=== PATIENT | female | born 1970 | race Caucasian/White ===

== ENCOUNTER 2016-06-18 18:51 | Emergency (ER) | payer MEDICARE, OTHER ==
--- NOTE | ~2016-06-18 | CR21 ---
[facility] A Service of [facility] RADIOLOGY TEXT RESULTS PATIENT: VINEET MOSQUEDA LOCATION: SED : 68 UNIT #: [id number] AGE: [address]: Nik Hendricks MD SEX: F ORDER DR: [id number] [address] [address] [id number] E MR#: [id number] Acc #: [id number] NAME: VINEET MOSQUEDA : 1970 SEX: F STUDY DATE/TIME: 06/18/2016 18:54 UNIT: SED ROOM: STUDY DESCRIPTION: CR Ankle Min 3 Views Rt Attending Physician: Nik Hendricks M.D. Ordering Physician: Jimbo Valerio M.D. Primary Care Physician: Keya Ross M.D. MEDICAL IMAGING REPORT This report is preliminary unless electronic signature is present. EXAM Right ankle, 3 views COMPARISON 3 views of the right foot on the same date. INDICATIONS 45-year-old female with medial right ankle pain after slipping on steps yesterday. FINDINGS There is mild to moderate enthesophyte at the plantar fascial attachment of the calcaneus with a small Achilles attachment enthesophyte. Bones are anatomically aligned. Chronic ossicle is noted at the medial malleolus, perhaps related to remote fracture or developmental in nature. This is symmetric as compared to contralateral side and it favors developmental process. No evidence of acute fracture. IMPRESSION No acute fracture or dislocation of the right ankle. Chronic ossicle is seen at the medial malleolus, symmetric as compared to contralateral side and most likely developmental. Dictated by... Marv Nj M.D. THIS IS AN ELECTRONICALLY VERIFIED REPORT Marv Nj M.D. at 06/19/2016 11:13 AM Poncho [facility] A Service of [facility] RADIOLOGY TEXT RESULTS PATIENT: VINEET MOSQUEDA LOCATION: SED : 69 UNIT #: [id number] AGE: [address]: Nik Hendricks MD SEX: F ORDER DR: TD: 06/19/2016 06:42 JOB #: [id number] MEDICAL IMAGING REPORT Page 1 of 1
--- NOTE | ~2016-06-18 | CR127 ---
[facility] A Service of [facility] RADIOLOGY TEXT RESULTS PATIENT: VINEET MOSQUEDA LOCATION: SED : [birth year] UNIT #: [id number] AGE: [address]: Nik Hendricks MD SEX: F ORDER DR: [id number] [address] [address] [id number] E MR#: [id number] Acc #: [id number] NAME: VINEET MOSQUEDA : 1970 SEX: F STUDY DATE/TIME: 06/18/2016 18:54 UNIT: SED ROOM: STUDY DESCRIPTION: CR Foot Complete Min 3 View Rt Attending Physician: Nik Hendricks M.D. Ordering Physician: Jimbo Valerio M.D. Primary Care Physician: Keya Ross M.D. MEDICAL IMAGING REPORT This report is preliminary unless electronic signature is present. EXAM Right foot, 3 views COMPARISON 3 views of the left foot on the same date. INDICATIONS A 45-year-old female with right heel pain after slipping on the stairs yesterday. FINDINGS Minimal enthesopathy at the Achilles attachment of the calcaneus with moderate sized enthesophyte at the plantar fascial attachment. Bones are anatomically aligned. There is no evidence of acute fracture. There is an ossicle versus exostosis at the level of the Lisfranc joint. IMPRESSION 1. No acute fracture or dislocation of the right foot. 2. Chronic ossicle versus exostosis at the Lisfranc joint. Dictated by... Marv Nj M.D. THIS IS AN ELECTRONICALLY VERIFIED REPORT Marv Nj M.D. at 06/19/2016 11:55 AM Shan TD: 06/19/2016 06:41 JOB #: [id number] [facility] A Service of [facility] RADIOLOGY TEXT RESULTS PATIENT: VINEET MOSQUEDA LOCATION: SED : 69 UNIT #: [id number] AGE: [address]: Nik Hendricks MD SEX: F ORDER DR: MEDICAL IMAGING REPORT Page 1 of 1
--- NOTE | ~2016-06-18 | CR20 ---
[facility] A Service [facility] RADIOLOGY TEXT RESULTS PATIENT: VINEET MOSQUEDA LOCATION: SED : [birth year] UNIT #: [id number] AGE: [address]: Nik Hendricks MD SEX: F ORDER DR: [id number] [place] [id number] E MR#: [id number] Acc #: [id number] NAME: VINEET MOSQUEDA : 1970 SEX: F STUDY DATE/TIME: 06/18/2016 18:54 UNIT: SED ROOM: STUDY DESCRIPTION: CR Ankle Min 3 Views Lt Attending Physician: Nik Hendricks M.D. Ordering Physician: Jimbo Valerio M.D. Primary Care Physician: Keya Ross M.D. MEDICAL IMAGING REPORT This report is preliminary unless electronic signature is present. EXAM Left ankle, 3 views COMPARISON Three views of the right ankle on the same date. INDICATION A 45-year-old female with medial left ankle pain after slipping on the stairs yesterday. FINDINGS There is chronic ossicle at the medial malleolus, symmetric as compared with the contralateral side and developmental in nature. There is a small to moderate enthesophyte at the plantar fascial attachment the calcaneus with a small enthesophyte at the Achilles attachment. Bones are anatomically aligned at the ankle. No evidence of acute fracture. IMPRESSION 1. No acute fracture or dislocation of the left ankle. 2. Mild degenerative changes at the calcaneus. 3. Chronic ossicle at the medial malleolus, symmetric as compared to the contralateral side and developmental in nature. Dictated by... Marv Nj M.D. [facility] A Service [facility] RADIOLOGY TEXT RESULTS PATIENT: VINEET MOSQUEDA LOCATION: SED : [birth year] UNIT #: [id number] AGE: [address]: Nik Hendricks MD SEX: F ORDER DR: THIS IS AN ELECTRONICALLY VERIFIED REPORT Marv jN M.D. at 06/19/2016 11:04 AM Shan TD: 06/19/2016 06:48 JOB #: [id number] MEDICAL IMAGING REPORT Page 1 of 1
--- NOTE | ~2016-06-18 | CR126 ---
[facility] A Service [facility] RADIOLOGY TEXT RESULTS PATIENT: VINEET MOSQUEDA LOCATION: SED : [birth year] UNIT #: [id number] AGE: [address]: Nik Hendricks MD SEX: F ORDER DR: [id number] [place] [id number] E MR#: [id number] Acc #: [id number] NAME: VINEET MOSQUEDA : 1970 SEX: F STUDY DATE/TIME: 06/18/2016 18:54 UNIT: SED ROOM: STUDY DESCRIPTION: CR Foot Complete Min 3 View Lt Attending Physician: Nik Hendricks M.D. Ordering Physician: Jimbo Valerio M.D. Primary Care Physician: Keya Ross M.D. MEDICAL IMAGING REPORT This report is preliminary unless electronic signature is present. EXAM Left foot, 3 views COMPARISON Three views ere is a left ankle on the same day. INDICATION A 45-year-old female with left heel pain after slipping on stairs yesterday. FINDINGS Mild enthesophyte is noted at the Achilles attachment of the calcaneus with a small to moderate enthesophyte at the plantar fascial attachment. There is question of a tiny os trigonum, normal anatomic variant. Bones are anatomically aligned. No evidence of acute fracture. IMPRESSION 1. No acute fracture or dislocation of the left foot. 2. Mild degenerative changes of the calcaneus. Dictated by... Marv Nj M.D. THIS IS AN ELECTRONICALLY VERIFIED REPORT Marv Nj M.D. at 06/19/2016 11:56 AM JOVANY/jf TD: 06/19/2016 06:43 JOB #: [id number] [facility] A Service [facility] RADIOLOGY TEXT RESULTS PATIENT: VINEET MOSQUEDA LOCATION: SED : [birth year] UNIT #: [id number] AGE: [address]: Nik Hendricks MD SEX: F ORDER DR: MEDICAL IMAGING REPORT Page 1 of 1
[~2016-06-18 18:51] MED LIST: ACID REDUCER75 M1 PO; ASPIRIN EC81 M1 PO; AUGMENTIN875 MG PO; BENADRYL25 M1 PO; BENADRYL25 MG PO; FLEXERIL10 MG; FLEXERIL10 MG PO; FLONASE ALLERG9.9 ML; KEFLEX500 M1 PO; MEDROL4 MG/DOSE- PO; MOTRIN600 MG; OXYCODON-ACETA1 EAC1; PERCOCET 10/3251 TAB PO; PHENERGAN12.5 MG/SU PR; PHENERGAN25 M1 PO; PHENERGAN25 MG PO; PROTONIX20 MG PO; TORADOL10 MG PO; TRAMADOL HCL50 M1 PO; TYLENOL #3; TYLENOL #3 PO; TYLENOL325 M1 PO; ULTRAM; ZANAFLEX; ZYRTEC PO
== END 2016-06-18 19:55 | disposition home or self-care (01) ==
LOC: SED 18:51
DX: S93.402A Sprain of unspecified ligament of left ankle, initial encounter (principal); F31.9 Bipolar disorder, unspecified; Z88.1 Allergy status to other antibiotic agents; Z88.8 Allergy status to other drugs, medicaments and biological substances; Z79.899 Other long term (current) drug therapy; Z88.5 Allergy status to narcotic agent; X58.XXXA Exposure to other specified factors, initial encounter; Y92.009 Unspecified place in unspecified non-institutional (private) residence as the place of occurrence of the external cause
CPT/HCPCS: 29540; 73610; 73630; 96372; 99283; J1170; J2550

== ENCOUNTER 2016-07-15 23:59 | Emergency (ER) | payer MEDICARE, OTHER ==
[2016-07-16 00:32] LABS: URINE SOURCE CLEAN CATCH
[2016-07-16 00:40] LABS: BASOPHIL# 0.1 X10e3 (0-0.3); BASOPHIL% 0.9 % (0-2.5); EOSINOPHIL# 0.2 X10e3 (0-0.7); HEMATOCRIT 39.1 % (35.0-45.0); HEMOGLOBIN 12.9 gm/dL (12.0-16.0); LYMPHOCYTE# 2.4 X10e3 (1.0-3.5); LYMPHOCYTE% 23.6 % (17.0-45.0); MEAN CORPUSCULAR HEMOGLOBIN 29.8 PG (28-34); MEAN CORPUSCULAR HGB CONC 33.1 g/dL (30-36); MEAN PLATELET VOLUME 7.6 FL (6.5-11.5); MONOCYTE# 0.7 X10e3 (0-1.0); MONOCYTE% 6.7 % (3.0-12.0); NEUTROPHIL# 6.8 X10e3 (1.5-7.1); NEUTROPHIL% 66.8 % (40-75); PLATELET COUNT 297 X10e3 (140-420); RED BLOOD COUNT 4.35 X10e (3.90-5.30); RED CELL DISTRIBUTION WIDTH 14.1 % (11.0-15.5); WHITE BLOOD COUNT 10.2 X10e3 (4.0-10.5)
[2016-07-16 00:41] LABS: DIFF IND NO
[2016-07-16 00:42] LABS: URINE APPEARANCE CLEAR; URINE BILIRUBIN NEG (NEG); URINE BLOOD 2+ (NEG); URINE COLOR YELLOW; URINE GLUCOSE NEG (NEG); URINE KETONE NEG (NEG); URINE LEUKOCYTE ESTERASE NEG (NEG); URINE NITRATE NEG (NEG); URINE PROTEIN NEG (NEG); URINE SPECIFIC GRAVITY 1.013 (1.003-1.035); URINE UROBILINOGEN 0.2 MG/DL (NEG)
[2016-07-16 00:45] LABS: URINE BACTERIA AUWI NEG (NEGATIVE); URINE SQUAMOUS EPITHELIAL CELL NONE SEEN /[HPF]; UWBCS1 AUWI 0-2 (0-5)
[2016-07-16 00:47] LABS: CULTURE INDICATED? NO
[2016-07-16 01:07] LABS: ALBUMIN SERUM 4.2 g/dL (3.5-5.0); BILIRUBIN, DIRECT 0.1 mg/dL (0.0-0.2); BILIRUBIN,INDIRECT 0.4 mg/dL (0.0-0.9); BILIRUBIN,TOTAL 0.5 mg/dL (0.2-2.0); CALCIUM SERUM 9.3 mg/dL (8.4-10.2); GLOM FILT RATE Estimated 67.5 mL/min (>60); POTASSIUM 3.8 mmol/L (3.5-5.1); PROTEIN TOTAL SERUM 7.5 g/dL (6.0-8.3)
== END 2016-07-16 03:45 | disposition home or self-care (01) ==
LOC: CED 23:59
PROVIDERS: Emergency Medicine
DX: R10.84 Generalized abdominal pain (principal); R11.0 Nausea; G89.29 Other chronic pain; K31.84 Gastroparesis; F17.200 Nicotine dependence, unspecified, uncomplicated; Z98.890 Other specified postprocedural states; Z79.82 Long term (current) use of aspirin; Z79.899 Other long term (current) drug therapy; Z86.79 Personal history of other diseases of the circulatory system
CPT/HCPCS: 36415; 80048; 80076; 81003; 82150; 83690; 84703; 85025; 96361; 96374; 96375; 99284; J1170; J2550

== ENCOUNTER → 2016-08-09 | Outpatient (CLI) | payer MEDICARE, OTHER ==
[~2016-08-09] MED LIST changes: +GI COCKTAIL PO; +OXAYDO7.5 MG; +PANTOPRAZOLE PO; +PERCOCET 7.5-31 EACH PO; +PROTONIX PO; +SODIUM CHLORIDE; +TRAMADOL HCL50 M2 PO; +TRAMADOL PO; +VICODIN PO; +VITAMIN D PO; +ZANAFLEX PO; +ZANTAC PO; +ZANTAC300 MG PO
== END | disposition home or self-care (01) ==
LOC: CSSDAY 13:12
DX: K86.1 Other chronic pancreatitis (principal)
CPT/HCPCS: 96360; 96361

== ENCOUNTER 2016-08-16 10:58 | Emergency (ER) | payer MEDICARE, OTHER ==
[~2016-08-16 10:58] MED LIST changes: -GI COCKTAIL PO; -OXAYDO7.5 MG; -PANTOPRAZOLE PO; -PERCOCET 7.5-31 EACH PO; -PROTONIX PO; -SODIUM CHLORIDE; -TRAMADOL HCL50 M2 PO; -TRAMADOL PO; -VICODIN PO; -VITAMIN D PO; -ZANAFLEX PO; -ZANTAC PO; -ZANTAC300 MG PO
[2016-08-16 12:01] LABS: BASOPHIL# 0.1 X10e3 (0-0.3); BASOPHIL% 0.6 % (0-2.5); EOSINOPHIL# 0.1 X10e3 (0-0.7); EOSINOPHIL% 1.5 % (0.0-7.0); HEMATOCRIT 39.6 % (35.0-45.0); HEMOGLOBIN 13.2 gm/dL (12.0-16.0); LYMPHOCYTE# 1.1 X10e3 (1.0-3.5); LYMPHOCYTE% 12.3 % (17.0-45.0); MEAN CELL VOLUME 89.6 FL (83-96); MEAN CORPUSCULAR HEMOGLOBIN 29.8 PG (28-34); MEAN CORPUSCULAR HGB CONC 33.3 g/dL (30-36); MONOCYTE# 0.5 X10e3 (0-1.0); NEUTROPHIL# 7.1 X10e3 (1.5-7.1); NEUTROPHIL% 79.6 % (40-75); PLATELET COUNT 284 X10e3 (140-420); RED BLOOD COUNT 4.41 X10e (3.90-5.30); RED CELL DISTRIBUTION WIDTH 13.6 % (11.0-15.5); WHITE BLOOD COUNT 8.9 X10e3 (4.0-10.5)
[2016-08-16 12:02] LABS: DIFF IND NO
[2016-08-16 12:14] LABS: URINE SOURCE CLEAN CATCH
[2016-08-16 12:24] LABS: URINE APPEARANCE CLEAR; URINE BILIRUBIN NEG (NEG); URINE BLOOD 3+ (NEG); URINE COLOR YELLOW; URINE GLUCOSE NEG (NEG); URINE KETONE NEG (NEG); URINE LEUKOCYTE ESTERASE NEG (NEG); URINE NITRATE NEG (NEG); URINE PH 5.5 (5-8); URINE PROTEIN NEG (NEG); URINE SPECIFIC GRAVITY 1.008 (1.003-1.035); URINE UROBILINOGEN 0.2 MG/DL (NEG)
[2016-08-16 12:27] LABS: URINE BACTERIA AUWI NEG (NEGATIVE); URINE SQUAMOUS EPITHELIAL CELL NONE SEEN /[HPF]; UWBCS1 AUWI 0-2 (0-5)
[2016-08-16 12:29] LABS: BUN/CREATININE RATIO 8.88; CALCIUM SERUM 9.2 mg/dL (8.4-10.2); CREATININE SERUM 0.9 mg/dL (0.6-1.4); GLOM FILT RATE Estimated 76.7 mL/min (>60); POTASSIUM 3.7 mmol/L (3.5-5.1)
[2016-08-16 12:31] LABS: CULTURE INDICATED? NO
[2016-08-16 12:43] LABS: AMPHETAMINE NEG (NEG); BARBITURATES NEG (NEG); BENZODIAZEPINES NEG (NEG); COCAINE NEG (NEG); MARIJUANA NEG (NEG); OPIATES NEG (NEG); TRICYCLIC ANTIDEPRESSANTS NEG (NEG); U METHADONE NEG (NEG)
== END 2016-08-16 13:30 | disposition home or self-care (01) ==
LOC: CED 10:58
PROVIDERS: Emergency Medicine
DX: M54.5 Low back pain (principal); G89.29 Other chronic pain; Z98.890 Other specified postprocedural states
CPT/HCPCS: 36415; 80048; 80307; 81003; 85025; 96361; 96365; 96374; 99284; J2270

== ENCOUNTER 2016-08-23 06:02 | Emergency (ER) | payer MEDICARE, OTHER ==
[2016-08-23 07:33] LABS: BASOPHIL% 0.4 % (0-2.5); EOSINOPHIL# 0.2 X10e3 (0-0.7); EOSINOPHIL% 1.6 % (0.0-7.0); HEMATOCRIT 40.1 % (35.0-45.0); HEMOGLOBIN 13.6 gm/dL (12.0-16.0); LYMPHOCYTE# 0.7 X10e3 (1.0-3.5); LYMPHOCYTE% 7.4 % (17.0-45.0); MEAN CELL VOLUME 88.5 FL (83-96); MEAN CORPUSCULAR HGB CONC 33.9 g/dL (30-36); MEAN PLATELET VOLUME 7.6 FL (6.5-11.5); MONOCYTE# 0.8 X10e3 (0-1.0); MONOCYTE% 8.7 % (3.0-12.0); NEUTROPHIL# 7.9 X10e3 (1.5-7.1); NEUTROPHIL% 81.9 % (40-75); PLATELET COUNT 276 X10e3 (140-420); RED BLOOD COUNT 4.54 X10e (3.90-5.30); RED CELL DISTRIBUTION WIDTH 13.1 % (11.0-15.5); WHITE BLOOD COUNT 9.7 X10e3 (4.0-10.5)
[2016-08-23 07:40] LABS: DIFF IND NO
[2016-08-23 08:07] LABS: ALBUMIN SERUM 4.2 g/dL (3.5-5.0); BILIRUBIN, DIRECT 0.1 mg/dL (0.0-0.2); BILIRUBIN,INDIRECT 0.7 mg/dL (0.0-0.9); BILIRUBIN,TOTAL 0.8 mg/dL (0.2-2.0); BUN/CREATININE RATIO 8.75; CALCIUM SERUM 9.6 mg/dL (8.4-10.2); CREATININE SERUM 0.8 mg/dL (0.6-1.4); GLOM FILT RATE Estimated 88.5 mL/min (>60); POTASSIUM 3.2 mmol/L (3.5-5.1); PROTEIN TOTAL SERUM 8.8 g/dL (6.0-8.3)
[2016-08-23] MEDS ORDERED: VICODIN PO (09:42)
[2016-08-23] MEDS ORDERED: PHENERGAN25 MG PO (09:42)
[2016-08-23 10:37] LABS: URINE SOURCE CLEAN CATCH
[2016-08-23 10:49] LABS: URINE APPEARANCE CLEAR; URINE BILIRUBIN NEG (NEG); URINE BLOOD 2+ (NEG); URINE COLOR YELLOW; URINE GLUCOSE NEG (NEG); URINE KETONE NEG (NEG); URINE LEUKOCYTE ESTERASE 3+ (NEG); URINE NITRATE NEG (NEG); URINE PH 6.5 (5-8); URINE PROTEIN NEG (NEG); URINE SPECIFIC GRAVITY 1.007 (1.003-1.035)
[2016-08-23 10:52] LABS: CULTURE INDICATED? YES; URBCS1 AUWI 25-50 /[HPF] (0-2); URINE BACTERIA AUWI NEG (NEGATIVE); URINE SQUAMOUS EPITHELIAL CELL NONE SEEN /[HPF]
== END 2016-08-23 15:43 ==
LOC: CED 06:02
PROVIDERS: Emergency Medicine
DX: K85.90 Acute pancreatitis without necrosis or infection, unspecified (principal); Z98.890 Other specified postprocedural states; Z79.891 Long term (current) use of opiate analgesic; Z79.899 Other long term (current) drug therapy
CPT/HCPCS: 36415; 80048; 80076; 81003; 82150; 83690; 85025; 87040; 87086; 96361; 96374; 96375; 99285; J2270; J2550

== ENCOUNTER 2016-10-02 18:05 | Emergency (ER) | payer MEDICARE, OTHER ==
--- NOTE | ~2016-10-02 | CR127 ---
[facility] A Service of [facility] RADIOLOGY TEXT RESULTS PATIENT: VINEET MOSQUEDA LOCATION: SED : [birth year] UNIT #: [id number] AGE: [address]: DELFINO BELLE SEX: F ORDER DR: [id number] [place] [id number] E MR#: [id number] Acc #: [id number] NAME: VINEET MOSQUEDA : 1970 SEX: F STUDY DATE/TIME: 10/02/2016 18:34 UNIT: SED ROOM: STUDY DESCRIPTION: CR Foot Complete Min 3 View Rt Attending Physician: Delfino Belle Ordering Physician: Chandni Stokes Pa-C Primary Care Physician: Yoni Marks M.D. MEDICAL IMAGING REPORT This report is preliminary unless electronic signature is present. EXAM Right foot series dated 10/02/2016. COMPARISON Left foot series dated 06/18/2016. HISTORY Trauma last night with the pain in the right foot. FINDINGS Three views of the right foot were obtained. The tarsal, metatarsal, and phalangeal elements are all anatomically normal in position and alignment. There are no articular defects. No fractures or radiopaque foreign bodies in the soft tissues are apparent. Small calcaneal spur is present. IMPRESSION Normal foot. Dictated by... Alta Shelton M.D. THIS IS AN ELECTRONICALLY VERIFIED REPORT Alta Shelton M.D. at 10/03/2016 1:27 PM CPR/ea [facility]. [facility] A Service of [facility] RADIOLOGY TEXT RESULTS PATIENT: VINEET MOSQUEDA LOCATION: SED : [birth year] UNIT #: [id number] AGE: [address]: DELFINO BELLE SEX: F ORDER DR: TD: 10/02/2016 22:11 JOB #: [id number] MEDICAL IMAGING REPORT Page 1 of 1
[~2016-10-02 18:05] MED LIST changes: +VICODIN PO
[2016-10-02] MEDS ORDERED: TRAMADOL PO (18:08)
[2016-10-02] MEDS ORDERED: SODIUM CHLORIDE (18:09)
[2016-10-02] MEDS ORDERED: PANTOPRAZOLE PO (18:09)
[2016-10-02] MEDS ORDERED: VITAMIN D PO (18:10)
[2016-10-02] MEDS ORDERED: ZANTAC PO (18:10)
[2016-10-02] MEDS ORDERED: ZANAFLEX PO (18:11)
== END 2016-10-02 19:48 | disposition home or self-care (01) ==
LOC: SED 18:05
DX: S90.31XA Contusion of right foot, initial encounter (principal); K21.9 Gastro-esophageal reflux disease without esophagitis; F17.200 Nicotine dependence, unspecified, uncomplicated; Z86.718 Personal history of other venous thrombosis and embolism; Z79.899 Other long term (current) drug therapy; Z88.2 Allergy status to sulfonamides; Z88.8 Allergy status to other drugs, medicaments and biological substances; Z88.1 Allergy status to other antibiotic agents; Z88.5 Allergy status to narcotic agent; W22.09XA Striking against other stationary object, initial encounter; Y92.009 Unspecified place in unspecified non-institutional (private) residence as the place of occurrence of the external cause
CPT/HCPCS: 29405; 73630; 99283

== ENCOUNTER 2016-10-15 00:41 | Emergency (ER) | payer MEDICARE, OTHER ==
[~2016-10-15 00:41] MED LIST changes: +PANTOPRAZOLE PO; +SODIUM CHLORIDE; +TRAMADOL PO; +VITAMIN D PO; +ZANAFLEX PO; +ZANTAC PO
[2016-10-15 04:06] LABS: BASOPHIL# 0.1 X10e3 (0-0.3); DIFF IND NO; EOSINOPHIL# 0.2 X10e3 (0-0.7); EOSINOPHIL% 2.7 % (0.0-7.0); HEMATOCRIT 38.5 % (35.0-45.0); HEMOGLOBIN 13.1 gm/dL (12.0-16.0); LYMPHOCYTE# 2.2 X10e3 (1.0-3.5); LYMPHOCYTE% 28.6 % (17.0-45.0); MEAN CELL VOLUME 87.9 FL (83-96); MEAN CORPUSCULAR HEMOGLOBIN 29.9 PG (28-34); MEAN CORPUSCULAR HGB CONC 34.1 g/dL (30-36); MEAN PLATELET VOLUME 7.3 FL (6.5-11.5); MONOCYTE# 0.5 X10e3 (0-1.0); MONOCYTE% 6.7 % (3.0-12.0); NEUTROPHIL# 4.8 X10e3 (1.5-7.1); PLATELET COUNT 302 X10e3 (140-420); RED BLOOD COUNT 4.38 X10e (3.90-5.30); RED CELL DISTRIBUTION WIDTH 14.3 % (11.0-15.5); WHITE BLOOD COUNT 7.8 X10e3 (4.0-10.5)
[2016-10-15 04:29] LABS: ALBUMIN SERUM 4.4 g/dL (3.5-5.0); ALKALINE PHOSPHATASE 111 U/L (32-92); ALT (SGPT) 14 U/L (10-40); AMYLASE 74 U/L (0-46); AST (SGOT) 14 U/L (10-42); BILIRUBIN,TOTAL 0.5 mg/dL (0.2-2.0); BLOOD UREA NITROGEN 13 mg/dL (9-23); BUN/CREATININE RATIO 16.25; CALCIUM SERUM 9.3 mg/dL (8.4-10.2); CARBON DIOXIDE 26 mmol/L (22-31); CHLORIDE 108 mmol/L (100-111); CREATININE SERUM 0.8 mg/dL (0.6-1.4); GLOM FILT RATE Estimated 87.9 mL/min (>60); GLUCOSE FASTING 95 mg/dL (70-110); LIPASE 73 U/L (22-51); POTASSIUM 3.9 mmol/L (3.5-5.1); PROTEIN TOTAL SERUM 8.1 g/dL (6.0-8.3); SODIUM 139 mmol/L (135-145)
[2016-10-15 04:33] LABS: BILIRUBIN, DIRECT <0.1 mg/dL (0.0-0.2); BILIRUBIN,INDIRECT 0.4 mg/dL (0.0-0.9)
== END 2016-10-15 05:01 | disposition home or self-care (01) ==
LOC: CED 00:41
PROVIDERS: Emergency Medicine
DX: R10.11 Right upper quadrant pain (principal); G43.909 Migraine, unspecified, not intractable, without status migrainosus; F17.200 Nicotine dependence, unspecified, uncomplicated; Z90.49 Acquired absence of other specified parts of digestive tract; Z90.710 Acquired absence of both cervix and uterus; Z88.8 Allergy status to other drugs, medicaments and biological substances; Z88.1 Allergy status to other antibiotic agents; Z79.899 Other long term (current) drug therapy
CPT/HCPCS: 36415; 80048; 80076; 82150; 83690; 85025; 96361; 96374; 96375; 99284; C9113; J2270; J2550

== ENCOUNTER 2016-10-16 13:56 | Emergency (ER) | payer MEDICARE, OTHER ==
[~2016-10-16] VITALS: Ht 167.6 cm; Wt 72.6 kg
[2016-10-16 14:52] LABS: URINE SOURCE CLEAN CATCH
[2016-10-16 15:02] LABS: URINE APPEARANCE CLEAR; URINE BILIRUBIN NEG (NEG); URINE BLOOD 1+ (NEG); URINE COLOR YELLOW; URINE GLUCOSE NEG (NEG); URINE KETONE NEG (NEG); URINE LEUKOCYTE ESTERASE TRACE (NEG); URINE NITRATE NEG (NEG); URINE PH 5.5 (5-8); URINE PROTEIN NEG (NEG); URINE SPECIFIC GRAVITY 1.007 (1.003-1.035); URINE UROBILINOGEN 0.2 MG/DL (NEG)
[2016-10-16 15:06] LABS: URINE BACTERIA AUWI NEG (NEGATIVE); URINE SQUAMOUS EPITHELIAL CELL NONE SEEN /[HPF]; UWBCS1 AUWI 0-2 (0-5)
[2016-10-16 15:12] LABS: CULTURE INDICATED? NO
[2016-10-16 15:19] LABS: AMPHETAMINE NEG (NEG); BARBITURATES NEG (NEG); BENZODIAZEPINES NEG (NEG); COCAINE NEG (NEG); MARIJUANA NEG (NEG); OPIATES POS (NEG); TRICYCLIC ANTIDEPRESSANTS NEG (NEG); U METHADONE NEG (NEG)
[2016-10-16 15:32] LABS: BASOPHIL# 0.1 X10e3 (0-0.3); EOSINOPHIL# 0.1 X10e3 (0-0.7); EOSINOPHIL% 1.6 % (0.0-7.0); HEMATOCRIT 36.9 % (35.0-45.0); HEMOGLOBIN 12.3 gm/dL (12.0-16.0); LYMPHOCYTE# 1.4 X10e3 (1.0-3.5); LYMPHOCYTE% 18.6 % (17.0-45.0); MEAN CELL VOLUME 88.1 FL (83-96); MEAN CORPUSCULAR HEMOGLOBIN 29.4 PG (28-34); MEAN CORPUSCULAR HGB CONC 33.4 g/dL (30-36); MEAN PLATELET VOLUME 7.3 FL (6.5-11.5); MONOCYTE# 0.4 X10e3 (0-1.0); MONOCYTE% 5.7 % (3.0-12.0); NEUTROPHIL# 5.3 X10e3 (1.5-7.1); NEUTROPHIL% 73.1 % (40-75); PLATELET COUNT 291 X10e3 (140-420); RED BLOOD COUNT 4.18 X10e (3.90-5.30); RED CELL DISTRIBUTION WIDTH 14.1 % (11.0-15.5); WHITE BLOOD COUNT 7.3 X10e3 (4.0-10.5)
[2016-10-16 15:37] LABS: DIFF IND NO
[2016-10-16 16:21] LABS: ALBUMIN SERUM 4.3 g/dL (3.5-5.0); ALKALINE PHOSPHATASE 104 U/L (32-92); ALT (SGPT) 14 U/L (10-40); AMYLASE 51 U/L (0-46); AST (SGOT) 16 U/L (10-42); BILIRUBIN,TOTAL 0.2 mg/dL (0.2-2.0); BLOOD UREA NITROGEN 7 mg/dL (9-23); BUN/CREATININE RATIO 8.75; CALCIUM SERUM 9.5 mg/dL (8.4-10.2); CARBON DIOXIDE 24 mmol/L (22-31); CHLORIDE 109 mmol/L (100-111); CREATININE SERUM 0.8 mg/dL (0.6-1.4); GLOM FILT RATE Estimated 87.9 mL/min (>60); GLUCOSE FASTING 95 mg/dL (70-110); LIPASE 47 U/L (22-51); PROTEIN TOTAL SERUM 7.8 g/dL (6.0-8.3); SODIUM 142 mmol/L (135-145)
[2016-10-16 16:23] LABS: BILIRUBIN, DIRECT <0.1 mg/dL (0.0-0.2); BILIRUBIN,INDIRECT 0.1 mg/dL (0.0-0.9)
== END 2016-10-16 18:00 | disposition home or self-care (01) ==
LOC: CED 13:56
PROVIDERS: Emergency Medicine
DX: R10.13 Epigastric pain (principal); R11.2 Nausea with vomiting, unspecified; R19.7 Diarrhea, unspecified; R51 Headache; F17.200 Nicotine dependence, unspecified, uncomplicated; Z90.49 Acquired absence of other specified parts of digestive tract; Z90.710 Acquired absence of both cervix and uterus; Z79.899 Other long term (current) drug therapy; Z88.2 Allergy status to sulfonamides; Z88.1 Allergy status to other antibiotic agents; Z88.8 Allergy status to other drugs, medicaments and biological substances
CPT/HCPCS: 36415; 80048; 80076; 80307; 81003; 82150; 83690; 85025; 96361; 96374; 96375; 99284; J1885; J2270; J2550

== ENCOUNTER 2016-10-20 19:34 | Emergency (ER) | payer MEDICARE, OTHER ==
[~2016-10-20] VITALS: Ht 167.6 cm; Wt 72.6 kg
--- NOTE | ~2016-10-20 | CR132 ---
[facility] [[email or web address] A Service of [facility] RADIOLOGY TEXT RESULTS PATIENT: VINEET MOSQUEDA LOCATION: SED : [birth year] UNIT #: [id number] AGE: [address]: CHLOE MENDOZA SEX: F ORDER DR: [id number] [place] [id number] E MR#: [id number] Acc #: [id number] NAME: VINEET MOSQUEDA : 1970 SEX: F STUDY DATE/TIME: 10/20/2016 20:03 UNIT: SED ROOM: STUDY DESCRIPTION: CR Forearm 2 View Lt Attending Physician: Chloe Mendoza A.P.R.N. Ordering Physician: Chloe Mendoza A.P.R.N. Primary Care Physician: Yoni Marks M.D. MEDICAL IMAGING REPORT This report is preliminary unless electronic signature is present. EXAM Left forearm 2 views HISTORY Arm pain after fall onto table today. FINDINGS AP and lateral views of the forearm show no evidence of fracture or destructive bone lesion. No periosteal elevation is seen. No radiodense foreign bodies are noted. Adjacent soft tissue structures are normal. IMPRESSION Normal forearm. Dictated by... Silverio Lopez M.D. THIS IS AN ELECTRONICALLY VERIFIED REPORT Silverio Lopez M.D. at 10/21/2016 11:18 PM DFMarie/vanessa TD: 10/21/2016 08:20 JOB #: [id number] MEDICAL IMAGING REPORT Page 1 of 1
[2016-10-20] MEDS ORDERED: OXAYDO7.5 MG (19:47)
== END 2016-10-20 20:45 | disposition home or self-care (01) ==
LOC: SED 19:34
DX: S50.12XA Contusion of left forearm, initial encounter (principal); F17.200 Nicotine dependence, unspecified, uncomplicated; Z88.8 Allergy status to other drugs, medicaments and biological substances; Z79.899 Other long term (current) drug therapy; W01.0XXA Fall on same level from slipping, tripping and stumbling without subsequent striking against object, initial encounter; Y92.009 Unspecified place in unspecified non-institutional (private) residence as the place of occurrence of the external cause
CPT/HCPCS: 73090; 99283

== ENCOUNTER → 2016-10-24 | Outpatient (CLI) | payer MEDICARE, OTHER ==
[~2016-10-24] MED LIST changes: +GI COCKTAIL PO; +OXAYDO7.5 MG; +PERCOCET 7.5-31 EACH PO; +PROTONIX PO; +TRAMADOL HCL50 M2 PO; +ZANTAC300 MG PO
== END | disposition home or self-care (01) ==
LOC: CSSDAY 14:49
DX: K86.1 Other chronic pancreatitis (principal); R19.7 Diarrhea, unspecified; R11.0 Nausea; Z79.899 Other long term (current) drug therapy
CPT/HCPCS: 96360; 96361; 96374; J2550

== ENCOUNTER 2016-11-02 17:34 | Emergency (ER) | payer MEDICARE, OTHER ==
[~2016-11-02] VITALS: Ht 167.6 cm; Wt 70.3 kg
[~2016-11-02 17:34] MED LIST changes: -GI COCKTAIL PO; -PERCOCET 7.5-31 EACH PO; -PROTONIX PO; -TRAMADOL HCL50 M2 PO; -ZANTAC300 MG PO
[2016-11-02 18:24] LABS: URINE SOURCE CLEAN CATCH
[2016-11-02 18:33] LABS: URINE APPEARANCE CLEAR; URINE BILIRUBIN NEG (NEG); URINE BLOOD 2+ (NEG); URINE COLOR YELLOW; URINE GLUCOSE NEG (NEG); URINE KETONE NEG (NEG); URINE LEUKOCYTE ESTERASE NEG (NEG); URINE NITRATE NEG (NEG); URINE PH 5.5 (5-8); URINE PROTEIN NEG (NEG); URINE SPECIFIC GRAVITY 1.008 (1.003-1.035); URINE UROBILINOGEN 0.2 MG/DL (NEG)
[2016-11-02 18:36] LABS: URINE BACTERIA AUWI NEG (NEGATIVE); URINE SQUAMOUS EPITHELIAL CELL NONE SEEN /[HPF]; UWBCS1 AUWI 0-2 (0-5)
[2016-11-02 18:37] LABS: CULTURE INDICATED? NO
[2016-11-02 19:01] LABS: BASOPHIL# 0.1 X10e3 (0-0.3); BASOPHIL% 1.2 % (0-2.5); EOSINOPHIL# 0.2 X10e3 (0-0.7); EOSINOPHIL% 1.9 % (0.0-7.0); HEMOGLOBIN 12.9 gm/dL (12.0-16.0); LYMPHOCYTE# 1.9 X10e3 (1.0-3.5); LYMPHOCYTE% 21.4 % (17.0-45.0); MEAN CORPUSCULAR HEMOGLOBIN 29.9 PG (28-34); MEAN PLATELET VOLUME 7.4 FL (6.5-11.5); MONOCYTE# 0.6 X10e3 (0-1.0); MONOCYTE% 6.6 % (3.0-12.0); NEUTROPHIL# 6.2 X10e3 (1.5-7.1); NEUTROPHIL% 68.9 % (40-75); PLATELET COUNT 328 X10e3 (140-420); RED BLOOD COUNT 4.32 X10e (3.90-5.30); RED CELL DISTRIBUTION WIDTH 14.5 % (11.0-15.5); WHITE BLOOD COUNT 8.9 X10e3 (4.0-10.5)
[2016-11-02 19:06] LABS: DIFF IND NO
[2016-11-02 19:31] LABS: ALBUMIN SERUM 4.3 g/dL (3.5-5.0); BILIRUBIN, DIRECT 0.2 mg/dL (0.0-0.2); BILIRUBIN,INDIRECT 0.3 mg/dL (0.0-0.9); BILIRUBIN,TOTAL 0.5 mg/dL (0.2-2.0); BUN/CREATININE RATIO 13.75; CALCIUM SERUM 9.3 mg/dL (8.4-10.2); CREATININE SERUM 0.8 mg/dL (0.6-1.4); GLOM FILT RATE Estimated 87.9 mL/min (>60); POTASSIUM 4.1 mmol/L (3.5-5.1)
== END 2016-11-02 23:52 | disposition home or self-care (01) ==
LOC: CED 17:34
PROVIDERS: Emergency Medicine
DX: K86.1 Other chronic pancreatitis (principal); E86.0 Dehydration; R19.7 Diarrhea, unspecified; G43.909 Migraine, unspecified, not intractable, without status migrainosus; F17.200 Nicotine dependence, unspecified, uncomplicated; Z90.49 Acquired absence of other specified parts of digestive tract; Z88.1 Allergy status to other antibiotic agents; Z88.8 Allergy status to other drugs, medicaments and biological substances
CPT/HCPCS: 36415; 80048; 80076; 81003; 82150; 83690; 85025; 96361; 96374; 96375; 99284; J1885; J2550

== ENCOUNTER 2016-11-16 14:58 | Inpatient (IN) | payer MEDICARE, OTHER ==
[~2016-11-16] VITALS: Ht 167.6 cm; Wt 68.5 kg
--- NOTE | ~2016-11-16 | A ---
[facility] DATE: 11/18/16 Patient: VINEET MOSQUEDA Physician: JUAN Address: [address] [place] [address] ROAD Room/Bed: [address] [place] [address], Zip: [place] [address] Admit Date: 11/17/16 Date of : [birth year] Height: 5 6 Weight: 151 68.5 NUTRITIONAL ASSESSMENT: REASON: 4 nutrition screen points (unplanned weight loss), consult Admitting dx: Pt is a 46 y/o female admitted with pancreatitis PMH: SVT, fibromyalgia, DVT, glycoprotein II disorder, antiphospholipid syndrome, 1/2 PPD smoker, PE, chronic pancreatitis Anthropometrics: Ht:66" Wt:151# BMI:25.1 UBW:170# %UBW:89% 11% weight loss in ~5 weeks (severe) Labs: Alb:3.2 ALT:9 Amyl:260 Lip:200 Meds: Protonix, Pepcid, Phenergan I/O & Bowel function: BM 11/16 Skin Integrity: ABD-scar Assessment: Chart reviewed, events noted. Pt was seen for unplanned weight loss. Furniture Polisher was able to speak to the pt at bedside. Pt reports that she has lost 20# in ~5 weeks (11% loss). Pt states that her appetite is good, but recent food allergies/issues have caused her to limit her intake and that she is scared to eat. Per pt, she has undergone food allergy testing (positive for pork and watermelon) and abides to a gluten free diet that is high in protein and low in fat. These food issues began in February 2016 and continue to persist and worsen. Pt reports she has recently had issues with strawberries, tomatoes, and MSG. Per pt, possible autoimmune disorders are currently being questioned. This RD encouraged the pt to eat smaller meals slowly and frequently throughout the day. Per rn internal medicine, pt seems to have a good knowledge of food and diet. RD to order pt a supplement to prevent further unintended weight loss. RD to follow-up per protocol. Dx: Decreased oral intake r/t new onset of food allergies/intolerances AEB 20# (11%) weight loss in ~5 weeks. Intervention: See RD recs below Monitoring, Evaluation and Goals: 1. Prevent further unintended weight loss. 2. Labs WNL. 3. Advancement and tolerance of PO diet. [facility] DATE: 11/18/16 Patient: VINEET MOSQUEDA Physician: JUAN Address: [address] [place] [address] ROAD Room/Bed: [address] [place] [address], Zip: [place] [address] Admit Date: 11/17/16 Date of : [birth year] Height: 5 6 Weight: 151 68.5 Monitor: criteria to determine if above goals met Recommendations: 1. Once medically feasible and diet advances to clear liquid, order Ensure Clear Apple BID to supplement poor PO intake and prevent further weight loss. If diet advances beyond clears, order Chocolate Ensure shakes BID. 2. Advance diet per DEADENER as tolerated with a low fat and lactose restriction. 3. Appreciate family and staff to encourage adequate po intake. RD will follow Pt is moderately compromised Respectfully, Florecita Gonzalez, Loader Unloader Bradley Davila, MS, RD, LD Food and Nutritional Services [facility] cc: client file
--- NOTE | ~2016-11-16 | DS ---
Unit #: [id number] #: [id number] Patient: VINEET MOSQUEDA [id number] [address] [address] [id number] I MR#: [id number] NAME: VINEET MOSQUEDA ROOM: 561 Age: 46 Sex: F Admission Date: 11/17/2016 : 1970 Discharge Date: 11/19/2016 Attending Physician: Nola Lopez M.D. Primary Care Physician: Olivia Squires A.P.R.N. DISCHARGE SUMMARY PRIMARY CARE PROVIDER Olivia Squires A.P.R.N. PRIMARY UG DESIGNER Sharon Dickson M.D. PRINCIPAL DIAGNOSES 1. Acute post endoscopic retrograde cholangiopancreatography pancreatitis, now resolved. 2. 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 3. History of supraventricular tachycardia, not observed during hospitalization. 4. Antiphospholipid antibody with prior history of blood clots, currently off anticoagulation. 5. Fibromyalgia. 6. Anxiety and depression. CONSULTANTS None. PROCEDURES None. CLINICAL HISTORY AND HOSPITAL COURSE Ms. Mosqueda is a 46-year-old female with a history of chronic pancreatitis, who underwent ERCP by Dr. Sharon Dickson on 11/15/2016. She presented to the emergency department on the with increasing abdominal pain and was found to have an elevated lipase of 389. She was subsequently admitted for acute pancreatitis. The patient was placed on IV fluids and made n.p.o., placed on antiemetics and pain medications. The following day, lipase had improved down to 200 and the patient was started on clears. She continued to have significant amount of pain, though was not having any nausea, vomiting, or diarrhea. By the morning of the , lipase had normalized at 32 and the patient was still having significant amount of pain, but was able to tolerate a diet without any nausea or vomiting. The patient informs me that her pancreatitis is better controlled on both of pain medication and continuous IV fluids at home. It is my understanding after speaking with Dr. Dickson that the patient has been on continuous IV fluids in the past, particularly both pre and post ERCP. I discussed the patient's case with Dr. Sharon Dickson and she will be discharged home on IV fluid as outlined Unit #: [id number] #: [id number] Patient: VINEET MOSQUEDA below. She will follow up with Dr. Dickson later this week. DISCHARGE CONDITION Stable. DISCHARGE STATUS Discharged to home with home health. DISCHARGE MEDICATIONS D5 half-normal saline at 100 mL an hour, Phenergan 25 mg p.o. q.4 hours p.r.n. for nausea and vomiting, Zantac 300 mg daily, Toradol 10 mg p.o. t.i.d. p.r.n. for headache, Percocet 7.5/325 mg one tablet p.o. q.4 hours p.r.n. for pain number given 15, tramadol 50 mg daily, Protonix 40 mg daily, GI cocktail 10 mL p.o. q.4 hours p.r.n. for indigestion. DISCHARGE INSTRUCTIONS The patient instructed to continue a regular diet as she can tolerate. She can increase her activity as tolerated. Again, we will maintain continuous IV fluids at home. FOLLOWUP The patient will follow up with Dr. Sharon Dickson later this week. Time spent on discharge 40 minutes. Dictated by... Nola Lopez M.D. GLENNY/soledad TD: 11/21/2016 15:16 JOB #: [id number] DISCHARGE SUMMARY Page 1 of 1 X Nola Lopez MD X DISCHARGE SUMMARY
--- NOTE | ~2016-11-16 | HP ---
Unit #: [id number] #: [id number] Patient: VINEET MOSQUEDA [id number] [address] [address] [id number] I MR#: [id number] NAME: VINEET MOSQUEDA ROOM: 561 Age: 46 Sex: F Admission Date: 11/16/2016 : 1970 Attending Physician: Nicholas Harris M.D. Primary Care Physician: Olivia Squires HISTORY AND PHYSICAL CHIEF COMPLAINT Upper abdominal pain, nausea. DISCUSSION This is a 46-year-old female, who has a past medical history of chronic autoimmune recurrent pancreatitis, multiple ERCPs in the past, she had an ERCP also done yesterday by Dr. Sharon Dickson. She has history of SVT ablation, migraine, fibromyalgia, and antiphospholipid syndrome, glycoprotein II disorder, remote history of PE and left DVT in the past in 2008, on anticoagulation and she presented to the emergency room with chief complaint of having upper abdominal pain, she described radiate to back, she was found to be elevated lipase 389, potassium 3.5, and she had been admitted for acute pancreatitis, she denies fever, chills, and no other complaint. PAST MEDICAL HISTORY 1. History of SVT with ablation in the past. 2. Chronic autoimmune recurrent pancreatitis. 3. Migraine. 4. Fibromyalgia. 5. Antiphospholipid syndrome. 6. Glycoprotein II disorder. 7. History of pulmonary embolism, DVT in 2008, she is not on anticoagulation anymore. PAST SURGICAL HISTORY 1. Cholecystectomy. 2. Rectocele repair. 3. Multiple ERCPs. 4. Bladder repair. 5. C-spine fusion. 6. Hysterectomy. 7. Multiple abdominal surgeries for lysis of adhesions. 8. Left shoulder orthostatic surgery. ALLERGIES She has multiple allergies, NSAIDs, sulfonamides, nifedipine, Compazine, Tessalon Perles, methocarbamol, Robaxin, Klonopin, clonazepam, lithium, Mucinex, baclofen, methylprednisolone, Elavil, clindamycin, Macrobid, Cipro, Zithromax, Imitrex, Lovenox, gabapentin, Effexor, Stadol, ondansetron, gluten. FAMILY HISTORY Negative for pancreatitis. Unit #: [id number] #: [id number] Patient: VINEET MOSQUEDA HOME MEDICATIONS Are the followin. Percocet 2. Phenergan 3. Tramadol 4. Ranitidine 5. Pantoprazole 6. Zanaflex 7. GI cocktail SOCIAL HISTORY The patient smokes one half pack per day, does not drink alcohol, no other illicit drug use. REVIEW OF SYSTEMS Negative except as mentioned in the history of present illness. PHYSICAL EXAMINATION GENERAL: Middle-aged female lying in the bed comfortably, currently not in any distress. She is alert, awake, and oriented x3, comfortable, not in any distress. VITAL SIGNS: Current vitals are the following, temperature 98.9, heart rate 102, respiratory rate 16, and blood pressure 114/74. HEENT EXAMINATION: Pupils equal reactive to light and accommodation. Head: Normocephalic and atraumatic. NECK: Supple. No jugular venous distention. HEART: S1 and S2, regular rate and rhythm. LUNGS: Clear to auscultation bilaterally. No rhonchi. No wheezing. ABDOMEN: Soft, nontender, and nondistended. Bowel sounds are positive. EXTREMITIES: Inspection normal. No cyanosis, no clubbing, and no edema. NEUROLOGIC: No focal neurologic deficit. Cranial nerves II through XII intact. (1) throughout. DIAGNOSTIC STUDIES LABORATORY: Laboratory workup is the following, sodium 140, potassium 3.3, chloride 105, glucose 108, BUN 9, creatinine 0.8. LFT within normal limits except for alkaline phosphatase 108, lipase level 389, white count 8, hemoglobin 11, hematocrit 34.7, platelets 251. ASSESSMENT/PLAN 1. Qnezl-xd-nlbvydh autoimmune recurrent pancreatitis, the patient had an ERCP done yesterday by Dr. Sharon Dickson, will keep the patient on clear liquid diet, IV fluids, pain control. 2. History of SVT with a previous ablation. 3. Migraine. 4. Fibromyalgia. 5. History of antiphospholipid syndrome. 6. Glycoprotein 2 disorder. 7. Remote history of PE and DVT in 2008, she is not on anticoagulation anymore. 8. Multiple drug allergies. 9. DVT prophylaxis, will place the patient on SCDs. Unit #: [id number] #: [id number] Patient: VINEET MOSQUEDA Dictated by Rosalie Nunez/mercedes TD: 11/17/2016 14:37 JOB #: [id number] HISTORY AND PHYSICAL Page 1 of 1 X X HISTORY AND PHYSICAL
[2016-11-16 19:20] LABS: BASOPHIL# 0.1 X10e3 (0-0.3); BASOPHIL% 0.6 % (0-2.5); DIFF IND NO; EOSINOPHIL# 0.2 X10e3 (0-0.7); EOSINOPHIL% 2.4 % (0.0-7.0); HEMATOCRIT 34.7 % (35.0-45.0); HEMOGLOBIN 11.9 gm/dL (12.0-16.0); LYMPHOCYTE# 1.4 X10e3 (1.0-3.5); LYMPHOCYTE% 17.3 % (17.0-45.0); MEAN CELL VOLUME 87.3 FL (83-96); MEAN CORPUSCULAR HGB CONC 34.3 g/dL (30-36); MEAN PLATELET VOLUME 7.3 FL (6.5-11.5); MONOCYTE# 0.6 X10e3 (0-1.0); MONOCYTE% 7.9 % (3.0-12.0); NEUTROPHIL# 5.8 X10e3 (1.5-7.1); NEUTROPHIL% 71.8 % (40-75); PLATELET COUNT 251 X10e3 (140-420); RED BLOOD COUNT 3.97 X10e (3.90-5.30); WHITE BLOOD COUNT 8.1 X10e3 (4.0-10.5)
[2016-11-16 19:54] LABS: ALBUMIN SERUM 3.7 g/dL (3.5-5.0); BILIRUBIN, DIRECT 0.1 mg/dL (0.0-0.2); BILIRUBIN,INDIRECT 0.7 mg/dL (0.0-0.9); BILIRUBIN,TOTAL 0.8 mg/dL (0.2-2.0); BUN/CREATININE RATIO 11.25; CALCIUM SERUM 8.7 mg/dL (8.4-10.2); CREATININE SERUM 0.8 mg/dL (0.6-1.4); GLOM FILT RATE Estimated 87.9 mL/min (>60); POTASSIUM 3.3 mmol/L (3.5-5.1)
[2016-11-16] MEDS ORDERED: PHENERGAN25 MG PO (20:36)
[2016-11-16] MEDS ORDERED: PERCOCET 7.5-31 EACH PO (20:37)
[2016-11-16] MEDS ORDERED: TRAMADOL HCL50 M2 PO (20:38)
[2016-11-16] MEDS ORDERED: ZANTAC300 MG PO (20:38)
[2016-11-16] MEDS ORDERED: PROTONIX PO (20:38)
[2016-11-16] MEDS ORDERED: GI COCKTAIL PO (20:57)
[2016-11-16] MEDS ORDERED: TORADOL10 MG PO (20:58)
[2016-11-17 05:34] LABS: BASOPHIL# 0.1 X10e3 (0-0.3); BASOPHIL% 1.1 % (0-2.5); EOSINOPHIL# 0.2 X10e3 (0-0.7); EOSINOPHIL% 3.5 % (0.0-7.0); HEMATOCRIT 32.4 % (35.0-45.0); HEMOGLOBIN 10.9 gm/dL (12.0-16.0); LYMPHOCYTE# 1.7 X10e3 (1.0-3.5); LYMPHOCYTE% 25.4 % (17.0-45.0); MEAN CELL VOLUME 88.3 FL (83-96); MEAN CORPUSCULAR HEMOGLOBIN 29.6 PG (28-34); MEAN CORPUSCULAR HGB CONC 33.5 g/dL (30-36); MEAN PLATELET VOLUME 7.9 FL (6.5-11.5); MONOCYTE# 0.6 X10e3 (0-1.0); MONOCYTE% 8.4 % (3.0-12.0); NEUTROPHIL# 4.2 X10e3 (1.5-7.1); NEUTROPHIL% 61.6 % (40-75); PLATELET COUNT 249 X10e3 (140-420); RED BLOOD COUNT 3.67 X10e (3.90-5.30); RED CELL DISTRIBUTION WIDTH 14.2 % (11.0-15.5); WHITE BLOOD COUNT 6.8 X10e3 (4.0-10.5)
[2016-11-17 05:38] LABS: DIFF IND NO
[2016-11-17 06:16] LABS: ALBUMIN SERUM 3.3 g/dL (3.5-5.0); BILIRUBIN,TOTAL 0.2 mg/dL (0.2-2.0); CALCIUM SERUM 8.5 mg/dL (8.4-10.2); GLOM FILT RATE Estimated 67.1 mL/min (>60); PROTEIN TOTAL SERUM 6.3 g/dL (6.0-8.3)
[2016-11-18 06:38] LABS: HEMATOCRIT 31.2 % (35.0-45.0); HEMOGLOBIN 10.4 gm/dL (12.0-16.0); MEAN CELL VOLUME 88.4 FL (83-96); MEAN CORPUSCULAR HEMOGLOBIN 29.5 PG (28-34); MEAN CORPUSCULAR HGB CONC 33.3 g/dL (30-36); MEAN PLATELET VOLUME 7.6 FL (6.5-11.5); RED BLOOD COUNT 3.53 X10e (3.90-5.30); RED CELL DISTRIBUTION WIDTH 13.9 % (11.0-15.5); WHITE BLOOD COUNT 5.6 X10e3 (4.0-10.5)
[2016-11-18 07:13] LABS: ALBUMIN SERUM 3.2 g/dL (3.5-5.0); BILIRUBIN,TOTAL 0.4 mg/dL (0.2-2.0); CALCIUM SERUM 8.6 mg/dL (8.4-10.2); CREATININE SERUM 0.8 mg/dL (0.6-1.4); GLOM FILT RATE Estimated 87.9 mL/min (>60); POTASSIUM 3.8 mmol/L (3.5-5.1); PROTEIN TOTAL SERUM 6.2 g/dL (6.0-8.3)
[2016-11-19 08:02] LABS: BUN/CREATININE RATIO 8.57; CALCIUM SERUM 8.3 mg/dL (8.4-10.2); CREATININE SERUM 0.7 mg/dL (0.6-1.4); GLOM FILT RATE Estimated 103.2 mL/min (>60); POTASSIUM 3.3 mmol/L (3.5-5.1)
== END 2016-11-19 18:08 | disposition home health service (06) | DRG 393 ==
LOC: CED 14:58 → CEDOF 21:00 → CED 21:00 → CEDOF 21:44 → CED 21:44 → CEDOF 22:47 → C5B 22:47 → CED 11-17 16:04 → CEDOF 11-17 16:04 → C5B 11-17 16:04
PROVIDERS: Emergency Medicine; Internal Medicine
PROC: 0F798ZZ Dilation of Common Bile Duct, Via Natural or Artificial Opening Endoscopic (ICD-10-PCS; principal; 2016-11-17)
PROC: 0F7D8DZ Dilation of Pancreatic Duct with Intraluminal Device, Via Natural or Artificial Opening Endoscopic (ICD-10-PCS; 2016-11-17)
DX: K91.89 Other postprocedural complications and disorders of digestive system (principal); K85.90 Acute pancreatitis without necrosis or infection, unspecified; D68.61 Antiphospholipid syndrome; K83.1 Obstruction of bile duct; K86.1 Other chronic pancreatitis; E77.9 Disorder of glycoprotein metabolism, unspecified; K91.1 Postgastric surgery syndromes; Y83.8 Other surgical procedures as the cause of abnormal reaction of the patient, or of later complication, without mention of misadventure at the time of the procedure; M79.7 Fibromyalgia; F41.9 Anxiety disorder, unspecified; F32.9 Major depressive disorder, single episode, unspecified; G43.909 Migraine, unspecified, not intractable, without status migrainosus; Z86.711 Personal history of pulmonary embolism; Z86.718 Personal history of other venous thrombosis and embolism; Z90.49 Acquired absence of other specified parts of digestive tract; Z90.710 Acquired absence of both cervix and uterus; Z88.1 Allergy status to other antibiotic agents; Z88.2 Allergy status to sulfonamides; Z88.8 Allergy status to other drugs, medicaments and biological substances; F17.200 Nicotine dependence, unspecified, uncomplicated; E87.6 Hypokalemia; M19.90 Unspecified osteoarthritis, unspecified site; M50.30 Other cervical disc degeneration, unspecified cervical region; K21.9 Gastro-esophageal reflux disease without esophagitis; Z79.899 Other long term (current) drug therapy; Z79.1 Long term (current) use of non-steroidal anti-inflammatories (NSAID); Z88.0 Allergy status to penicillin
CPT/HCPCS: 36415; 80048; 80053; 80076; 82150; 82306; 83690; 83735; 85025; 85027; 96361; 96374; 96375; 99284; C9113; J1170; J1200; J2270; J2405; J2550; J3475